=== PATIENT | female | born 1990 | race African-American/Black ===

== ENCOUNTER 2021-08-06 18:49 | Emergency (ER) | payer SELFPAY ==
[~2021-08-06] VITALS: Ht 154.9 cm; Wt 71.2 kg
[2021-08-06] MEDS ORDERED: HYDRALAZINE HCL 20 MG/ML VIAL IV STA (18:53)
[2021-08-06] MEDS ORDERED: ASPIRIN 81 MG CHEW TAB PO ONE (19:00)
[2021-08-06 19:15] LABS: BASOPHILS # (AUTO) 0.1 (0.0-0.1); BASOPHILS % 0.6 % (0.0-1.0); EOSINOPHILS # (AUTO) 1.4 (0.0-0.4); EOSINOPHILS % 16.7 % (0.0-6.0); HEMATOCRIT 28.6 % (34.2-44.1); HEMOGLOBIN 8.8 g/dL (12.0-16.0); LYMPHOCYTES # (AUTO) 1.1 (1.0-3.2); LYMPHOCYTES % 12.8 % (18.0-39.1); MEAN CORPUSCULAR HEMOGLOBIN 28.5 pg (28-32); MEAN CORPUSCULAR HGB CONC 30.8 g/dL (31-35); MEAN CORPUSCULAR VOLUME 92.6 fL (81-99); MONOCYTES # (AUTO) 0.4 (0.2-0.8); MONOCYTES % 4.5 % (4.4-11.3); NEUTROPHILS # (AUTO) 5.5 (2.1-6.9); NEUTROPHILS % 65.2 % (38.7-80.0); PLATELET COUNT 313 x10e3/uL (140-360); RED BLOOD COUNT 3.09 x10e6/uL (3.6-5.1); RED CELL DISTRIBUTION WIDTH 19.6 % (11.7-14.4)
[2021-08-06] MEDS ORDERED: TRAMADOL HCL 50 MG TAB PO ONE (19:30)
[2021-08-06 19:39] LABS: ALBUMIN 3.3 g/dL (3.5-5.0); ALBUMIN/GLOBULIN RATIO 0.9 (0.8-2.0); CALCIUM 7.3 mg/dL (8.4-10.2); CREATININE, SERUM 5.19 mg/dL (0.57-1.11)
[2021-08-06] MEDS ORDERED: ACETAMINOPHEN 325 MG TAB PO STA (20:58)
[2021-08-06] MEDS ORDERED: ACETAMINOPHEN 325 MG TAB ONE (21:10)
[2021-08-06] MEDS ORDERED: NITROGLYCERIN 2% OINT 1 GM PKT TOP ONE (21:15)
[2021-08-06] MEDS ORDERED: Morphine 2mg Syringe 2 MG/ML SYR IV STA (21:22)
[2021-08-06 22:49] LABS: CREATINE KINASE MB 1.8 ng/mL (0-5.0)
[2021-08-06] MEDS ORDERED: Morphine 2mg Syringe 2 MG/ML SYR IV ONE (23:15)
[2021-08-06 23:22] VITALS: BP 165/115
== END 2021-08-06 23:59 | disposition home or self-care (01) ==
LOC: ER 18:54
DX: R07.89 Other chest pain (principal); I12.0 Hypertensive chronic kidney disease with stage 5 chronic kidney disease or end stage renal disease; E11.22 Type 2 diabetes mellitus with diabetic chronic kidney disease; N18.6 End stage renal disease; Z99.2 Dependence on renal dialysis; I50.9 Heart failure, unspecified; I25.10 Atherosclerotic heart disease of native coronary artery without angina pectoris
CPT/HCPCS: 36415; 71045; 80053; 82550; 82553; 83880; 84484; 85025; 99284; J0360; J2270